=== PATIENT | male | born 1945 | race Caucasian/White ===

== ENCOUNTER 2024-06-14 14:30 | Outpatient (CLI) | payer MEDICARE, SELFPAY ==
--- NOTE | 2024-06-14 14:46 | XR_ITS ---
WS: [id number] Cervical spine, 5 views, AP, odontoid and lateral views in flexion, extension and neutral position, 06/14/2024 Clinical Data: CHRONIC NECK PAIN/NUMBNESS TINGLING SENSATION Comparison: None. Findings: No compression fractures are seen. There is degenerative disc narrowing at C5-C6 and C6-C7 with accompanying osteophytes. There is no instability on flexion or extension. There is no prevertebral soft tissue swelling. The odontoid is unremarkable. The soft tissues of the neck and the lung apices are normal. XR/XR cervical spine 4-5V [id number] Impression: 1. Disc narrowing at C5-C6 and C6-C7 with accompanying osteophytes. 2. No instability on flexion or extension.
== END 2024-06-14 14:31 | disposition home or self-care (01) ==
PROVIDERS: PCP Nurse Practitioner Family; Visit Provider Family Medicine
DX: M50.322 Other cervical disc degeneration at C5-C6 level (principal); R20.2 Paresthesia of skin; M50.323 Other cervical disc degeneration at C6-C7 level; M25.78 Osteophyte, vertebrae
CPT/HCPCS: 72050